=== PATIENT | male | born 1945 | race Caucasian/White ===

== ENCOUNTER 2017-04-06 08:02 | Observation (INO) | payer BC ==
--- NOTE | ~2017-04-06 | EKG ---
PATIENT: FIGUEROA BUSH UNIT #: [id number] Ventricular Rate: 108 BPM Atrial Rate: 56 BPM QRS Duration: 92 ms Q-T Interval: 360 ms QTC Calculation(Bezet): 482 ms Calculated R [place]: 21 degrees Calculated T [place]: 85 degrees Diagnosis Line: Atrial fibrillation with PVC's Diagnosis Line: Nonspecific ST and T wave abnormality Diagnosis Line: Abnormal ECG Diagnosis Line: No previous ECGs available Diagnosis Line: Confirmed by CATHERINE MA MD ([id number]) on Diagnosis Line: 04/06/2017 11:01:46 PM INTERPRETING MD: ALBERTO
--- NOTE | ~2017-04-06 | DS ---
Unit #: [id number] #: [id number] Patient: FIGUEROA BUSH [id number] [address] [address] [id number] MR#: [id number] NAME: FIGUEROA BUSH. ROOM: 547 Age: 71 Sex: M Admission Date: 04/06/2017 : 1945 Discharge Date: 04/07/2017 Attending Physician: Pascual Richmond M.D. Primary Care Physician: No Primary Care Physician DISCHARGE SUMMARY DISCHARGE DIAGNOSES 1. Status post right and left cardiac catheterization on 04/06/2017 revealed normal left ventricle. Severe aortic stenosis with aortic valve area 0.61 centimeters squared. Normal coronaries. There was 2 to 3+ aortic regurgitation. Mitral regurgitation. 2. Status post transesophageal echocardiogram on 04/07/2017, which was unsuccessful due to significant cough and gag reflex. 3. Atrial fibrillation with controlled ventricular rate, recently diagnosed. 4. Hypertension. 5. Hyperlipidemia. 6. Benign prostatic hypertrophy. 7. History of ventral hernia. 8. Lifetime nonsmoker. DISCHARGE MEDICATIONS 1. Edarbyclor 40/12.5 mg 1 tablet p.o. daily. Samples provided. 2. Amlodipine 5 mg p.o. daily. 3. Metoprolol tartrate 25 mg p.o. b.i.d. 4. Super Beta Prostate 1 capsule p.o. b.i.d. 5. Multivitamin 1 tablet p.o. daily. 6. Eliquis 5 mg p.o. b.i.d. Samples provided. HOSPITAL COURSE This is a 71-year-old male, known to Dr. Richmond. The patient was seen in the office on 04/03/2017 due to atrial fibrillation. He had just been seen by Dr. Almazan for blood pressure check and was found to have atrial fibrillation, confirmed by EKG. The patient was unaware of any irregularity of the heartbeat but had noticed some palpitations over the last couple of weeks. He also had some occasional exertional shortness of breath but no dizziness, lightheadedness or syncope. He denied any ankle edema, orthopnea or PND. Examination revealed a systolic murmur over the sternum. He was given samples of Edarbyclor for hypertension. He was recommended to undergo a cardiac catheterization due to valvular disease and exertional dyspnea. Right and left cardiac catheterization on 04/06/2017 revealed severe aortic stenosis, normal coronaries. He also had 2 to 3+ aortic regurgitation and mitral regurgitation. He was recommended for a DONN to document extent of mitral and aortic regurgitation. The DONN was completed on 04/07/2017 but was unsuccessful due to severe gag reflex and coughing. The test was stopped, and readings could not be obtained. The patient is stable this afternoon. Denies any complaints. He is on room air, and telemetry is stable. His cath site is soft without hematoma, and he is alert and oriented. He is stable and will be discharged home today by Dr. Richmond. Dr. Mcknight's office with CT surgery Unit #: [id number] #: [id number] Patient: FIGUEROA BUSH will call him to set up aortic valve replacement. He will need a DONN upon arrival to [facility]. This may be done preoperatively or in the intraoperative area to evaluate the mitral valve, as well. The patient has been placed on a beta-les for control of atrial fibrillation. He has also been started on Eliquis at 5 mg p.o. b.i.d. The cost has been checked and is affordable. He has also been given samples and a co-pay card. He has been instructed to hold his Eliquis for 72 hours prior to any procedure or surgery. Instructions have been given to the patient and his spouse, and they verbalize understanding and are agreeable. PHYSICAL EXAMINATION VITAL SIGNS: Temperature 97.8, pulse 91, blood pressure 119/92. CONSTITUTIONAL: This is a 71-year-old white male in no acute distress. SKIN: Warm and dry. NECK: Supple. No jugular vein distension. No hepatojugular reflux. Normal carotid upstrokes. No carotid bruits auscultated. HEART: S1, S2. Regular rate and rhythm. Soft systolic ejection murmur at the right and left sternal border, grade 2/6. No rubs or gallops. LUNGS: Bilateral breath sounds have good air entry throughout lung garland. Respirations even and unlabored. No rales, rhonchi or wheezes. ABDOMEN: Soft, nontender, nondistended. Positive bowel sounds auscultated in all 4 quadrants. No ascites noted. EXTREMITIES: Right groin is soft without hematoma. Bilateral extremities have no pretibial pitting edema. DP and PT pulses 2+. Capillary refill less than 3 seconds. DIAGNOSTIC STUDIES LABORATORY: White blood cell count 9.4, hemoglobin 15, hematocrit 44.4, platelets 187. Sodium 137, potassium 3.5, chloride 108, CO2 21, BUN 21, creatinine 1.1, glucose 100, AST 26, ALT 26, alkaline phosphatase 46. INR 1. CARDIOVASCULAR: Electrocardiogram reveals atrial fibrillation with PVCs. Nonspecific ST-T wave changes. Ventricular rate 108 beats per minute. QTc 482 msec. DISCHARGE INSTRUCTIONS 1. The patient will be discharged home today. 2. Followup at [facility] for aortic valve replacement and possible mitral valve replacement. 3. Dr. Mcknight's office to call with further details and scheduling. 4. Hold Eliquis 72 hours prior to procedure or surgery. 5. Continue Edarbyclor for blood pressure control and Metoprolol for atrial fibrillation. 6. Patient has been advised to return to the hospital for worsening symptoms or chest tightness. 7. Samples have been provided for Edarbyclor and Eliquis. Dictated by... Denia Bajwa APRN for Elva Aguirre/patricio TD: 04/10/2017 10:01 JOB #: [id number] Unit #: [id number] #: [id number] Patient: FIGUEROA BUSH DISCHARGE SUMMARY Page 1 of 1 X X DISCHARGE SUMMARY
[~2017-04-06 08:02] MED LIST: BENADRYL
[2017-04-06 08:33] LABS: HEMATOCRIT 45.9 % (38.0-50.0); HEMOGLOBIN 15.7 gm/dL (13.0-16.0); MEAN CELL VOLUME 91.7 FL (83-96); MEAN CORPUSCULAR HEMOGLOBIN 31.2 PG (28-34); MEAN CORPUSCULAR HGB CONC 34.1 g/dL (30-36); MEAN PLATELET VOLUME 7.5 FL (6.5-11.5); RED BLOOD COUNT 5.01 X10e (3.90-5.60); RED CELL DISTRIBUTION WIDTH 13.9 % (11.0-15.5); WHITE BLOOD COUNT 5.6 X10e3 (4.0-10.5)
[2017-04-06] MEDS ORDERED: SUPER BETA PROSTATE PO (08:46)
[2017-04-06] MEDS ORDERED: BAYER PO (08:47)
[2017-04-06] MEDS ORDERED: AMLODIPINE BESYL5 MG PO (08:48)
[2017-04-06] MEDS ORDERED: EDARBYCLOR 40-1 EACH PO (08:48)
[2017-04-06 08:49] LABS: PARTIAL THROMBOPLASTIN TIME 28.5 SECONDS (23.5-31.3); PROTHROMBIN TIME (PATIENT) 10.3 SECONDS (9.6-11.5)
[2017-04-06 08:56] LABS: BUN/CREATININE RATIO 18.57; CALCIUM SERUM 9.7 mg/dL (8.4-10.2); CREATININE SERUM 1.4 mg/dL (0.6-1.4); GLOM FILT RATE Estimated 50.6 mL/min (>60); POTASSIUM 3.4 mmol/L (3.5-5.1)
[2017-04-06] MEDS ORDERED: MULTI-VITAMIN PO (08:57)
[2017-04-07 12:40] LABS: HEMATOCRIT 44.4 % (38.0-50.0); MEAN CELL VOLUME 92.5 FL (83-96); MEAN CORPUSCULAR HEMOGLOBIN 31.2 PG (28-34); MEAN CORPUSCULAR HGB CONC 33.7 g/dL (30-36); MEAN PLATELET VOLUME 7.8 FL (6.5-11.5); RED BLOOD COUNT 4.8 X10e (3.90-5.60)
[2017-04-07 12:47] LABS: WHITE BLOOD COUNT 9.4 X10e3 (4.0-10.5)
[2017-04-07 13:22] LABS: ALBUMIN SERUM 4.1 g/dL (3.5-5.0); BILIRUBIN,TOTAL 0.9 mg/dL (0.2-2.0); BUN/CREATININE RATIO 19.09; CALCIUM SERUM 8.9 mg/dL (8.4-10.2); CREATININE SERUM 1.1 mg/dL (0.6-1.4); GLOM FILT RATE Estimated 67.7 mL/min (>60); POTASSIUM 3.5 mmol/L (3.5-5.1); PROTEIN TOTAL SERUM 7.1 g/dL (6.0-8.3)
[2017-04-07] MEDS ORDERED: ELIQUIS5 MG PO (15:20)
[2017-04-07] MEDS ORDERED: METOPROLOL TAR25 MG PO (15:20)
== END 2017-04-07 17:13 | disposition home or self-care (01) | DRG 307 ==
LOC: CCVL 08:02 → C5B 11:14 → CPACUOF 11:14 → C5B 11:14 → CEDOF 12:24 → CPACUOF 12:24 → C5B 12:45 → CEDOF 12:45 → C5B 12:45 → CEDOF 13:25 → C5B 13:25 → CPACUOF 13:25 → C5B 04-07 17:13
PROVIDERS: Internal Medicine Cardiovascular Disease
DX: I08.0 Rheumatic disorders of both mitral and aortic valves (principal); I48.91 Unspecified atrial fibrillation; Z79.01 Long term (current) use of anticoagulants; I10 Essential (primary) hypertension; E78.5 Hyperlipidemia, unspecified; N40.0 Benign prostatic hyperplasia without lower urinary tract symptoms; Z88.6 Allergy status to analgesic agent; Z82.49 Family history of ischemic heart disease and other diseases of the circulatory system; Z80.9 Family history of malignant neoplasm, unspecified
CPT/HCPCS: 36415; 80048; 80053; 82810; 85027; 85610; 85730; 93005; 93312; C1769; C1887; C1894; G0378; J1644; J2250; J3010